=== PATIENT | male | born 2000 | race African-American/Black ===

== ENCOUNTER 2022-09-04 10:03 | Emergency (ER) | payer OTHER, SELFPAY ==
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
[2022-09-04 10:05] VITALS: BP 132/69; PULSE 86; RESP 18; TEMP 36.6; O2SAT 98; BMI 20.3
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
[2022-09-04] MEDS: Ketorolac Tromethamine 30 MG/ML VIAL IM (12:10)
== END 2022-09-04 14:12 | disposition home or self-care (01) ==
PROVIDERS: Emergency Provider Emergency Medicine; PCP Internal Medicine
DX: M54.50 Low back pain, unspecified (principal); R51.9 Headache, unspecified; M54.2 Cervicalgia
CPT/HCPCS: 72125; 72131; 96372; 99283; 99284; J1885